=== PATIENT | male | born 1990 | race Caucasian/White ===

== ENCOUNTER 2019-01-05 21:13 | Emergency (ER) | payer OTHER ==
[~2019-01-05] VITALS: Ht 182.9 cm; Wt 70.3 kg
--- NOTE | 2019-01-05 21:47 | NUR ---
BIBSELF WITH FRIEND. TO ER BED 11. AMBULATORY, AAOX4, NO RESP DISTRESS NOTED. C/O L EYEBROW SWELLING. PAIN IS RATED BY PT 3/10 FEELING OF TIGHTNESS. PT REPORTS FALLING AND HITTING HIS HEAD ON A METAL RAIL. NOTED SWELLING ON L EYEROW, REDDISH-PURPLISH DISCOLORATION. NO VISUAL CHANGES NOTED. AWAITING MD FOR EVAL.
--- NOTE | 2019-01-05 22:44 | NUR ---
Patient discharged to home in stable condition. Written and verbal after care instructions given. Patient verbalizes understanding of instruction. Pt ambulatory with a steady gait
[2019-01-05 22:45] VITALS: BP 116/63
== END 2019-01-05 22:46 | disposition home or self-care (01) ==
LOC: ER 21:17
DX: S00.12XA Contusion of left eyelid and periocular area, initial encounter (principal); F17.200 Nicotine dependence, unspecified, uncomplicated; W01.198A Fall on same level from slipping, tripping and stumbling with subsequent striking against other object, initial encounter; Y93.89 Activity, other specified; Y92.89 Other specified places as the place of occurrence of the external cause; Y99.8 Other external cause status